=== PATIENT | male | born 1950 | race Caucasian/White ===

== ENCOUNTER 2021-04-26 06:10 | Outpatient (REF) | payer MEDICARE, OTHER, SELFPAY ==
[2021-04-26 12:01] LABS: Hematocrit 42.6 % (42-52); Hemoglobin 14.4 g/dl (14.0-18.0); Mean Corpuscular HGB Conc 33.8 g/dl (31.0-36.0); Mean Corpuscular Hemoglobin 30.2 pg (27.0-33.0); Mean Corpuscular Volume 89.3 fL (80-98); Platelet Count 253 X10*3/uL (160-400); Red Blood Count 4.77 X10*6/uL (4.60-5.80); Red Cell Distribution Width 12.9 % (11.0-16.0); White Blood Count 4.9 X10*3/uL (4.8-10.8)
[2021-04-26 12:03] LABS: Appearance Urine CLEAR; Color Urine YELLOW; Glucose Urine UA NEG (NEG); Leukocyte Esterase Urine NEG (NEG); Nitrite Urine NEG (NEG); Specific Gravity - Urine 1.025 (1.005-1.025); Urine Blood NEG (NEG); Urine Ketones NEG (NEG); Urine Protein NEG (NEG-TRACE)
[2021-04-26 12:30] LABS: Alanine Aminotransferase 18 U/L (0-40); Albumin Level 4.7 g/dL (3.5-5.0); Alkaline Phosphatase 70 U/L (39-117); Anion Gap 13 (12-20); Aspartate Amino Transferase 21 U/L (5-37); Bilirubin Total 0.7 mg/dL (0.0-1.0); Blood Urea Nitrogen 20 mg/dL (9-16); Calcium 9.9 mg/dL (8.4-10.2); Carbon Dioxide 29 mmol/L (22-29); Chloride 104 mmol/L (96-108); Cholesterol 196 mg/dL; Estimated Glomerular Filt Rate > 60; Glucose Fasting 103 mg/dL (60-99); HDL Cholesterol 61 mg/dL; LDL Cholesterol Calculated 113 mg/dl; Potassium 5.6 mmol/L (3.3-5.1); Sodium 140 mmol/L (135-145); Total Protein 7.2 g/dL (6.5-8.0); Triglycerides 110 mg/dL
[2021-04-30 18:17] LABS: Testosterone, Free 33.2 pg/mL (35.0-155.0); Testosterone, Total 255 ng/dL (250-1100)
== END 2021-04-26 06:11 | disposition home or self-care (01) ==
LOC: HO.HMGCLDS 06:10
PROVIDERS: PCP Internal Medicine; Visit Provider Internal Medicine
DX: Z00.00 Encounter for general adult medical examination without abnormal findings (principal); E78.5 Hyperlipidemia, unspecified; K21.9 Gastro-esophageal reflux disease without esophagitis; E29.1 Testicular hypofunction
CPT/HCPCS: 36415; 80053; 80061; 81003; 84402; 84403; 84443; 85027

== ENCOUNTER 2021-05-03 08:50 | Outpatient (REF) | payer MEDICARE, OTHER, SELFPAY ==
[2021-05-03 12:21] LABS: Anion Gap 13 (12-20); Blood Urea Nitrogen 19 mg/dL (9-16); Calcium 9.3 mg/dL (8.4-10.2); Carbon Dioxide 25 mmol/L (22-29); Chloride 104 mmol/L (96-108); Estimated Glomerular Filt Rate > 60; Glucose Random 79 mg/dL (60-115); Potassium 4.1 mmol/L (3.3-5.1); Sodium 138 mmol/L (135-145)
[2021-05-03 12:38] LABS: Prostate Specific Antigen Scr 0.38 ng/mL (<0.05-4.0)
== END 2021-05-03 08:51 | disposition home or self-care (01) ==
LOC: HO.HMGCLDS 08:50
PROVIDERS: PCP Internal Medicine; Visit Provider Internal Medicine
DX: Z12.5 Encounter for screening for malignant neoplasm of prostate (principal); N40.0 Benign prostatic hyperplasia without lower urinary tract symptoms; E87.5 Hyperkalemia
CPT/HCPCS: 36415; 80048; 84153

== ENCOUNTER 2022-08-01 07:50 | Outpatient (REF) | payer MEDICARE, OTHER, SELFPAY ==
[2022-08-01 11:33] LABS: Hematocrit 43.8 % (42.0-52.0); Hemoglobin 14.8 g/dl (14.0-18.0); Mean Corpuscular HGB Conc 33.8 g/dl (31.0-36.0); Mean Corpuscular Hemoglobin 30.5 pg (27.0-33.0); Mean Corpuscular Volume 90.3 fL (80.0-98.0); Mean Platelet Volume 10.3 fL (9.4-12.4); Platelet Count 232 X10*3/uL (160-400); Red Blood Count 4.85 X10*6/uL (4.60-5.80); White Blood Count 5.1 X10*3/uL (4.8-10.8)
[2022-08-01 12:49] LABS: Alanine Aminotransferase 23 U/L (0-40); Alkaline Phosphatase 77 U/L (39-117); Anion Gap 12 (12-20); Aspartate Amino Transferase 27 U/L (5-37); Bilirubin Total 0.7 mg/dL (0.0-1.0); Blood Urea Nitrogen 22 mg/dL (9-16); Carbon Dioxide 28 mmol/L (22-29); Chloride 104 mmol/L (96-108); Cholesterol 205 mg/dL; Estimated Glomerular Filt Rate > 60; Glucose Fasting 96 mg/dL (60-99); HDL Cholesterol 65 mg/dL; LDL Cholesterol Calculated 120 mg/dl; Potassium 4.2 mmol/L (3.3-5.1); Sodium 140 mmol/L (135-145); Total Protein 7.4 g/dL (6.5-8.0); Triglycerides 104 mg/dL
[2022-08-01 12:56] LABS: Prostate Specific Antigen Scr 0.53 ng/mL (<0.05-4.0)
[2022-08-10 18:59] LABS: Testosterone, Free 44.7 pg/mL (30.0-135.0); Testosterone, Total 274 ng/dL (250-1100)
== END 2022-08-01 07:51 | disposition home or self-care (01) ==
LOC: HO.HMGCLDS 07:50
PROVIDERS: PCP Internal Medicine; Visit Provider Internal Medicine
DX: Z00.00 Encounter for general adult medical examination without abnormal findings (principal); Z12.5 Encounter for screening for malignant neoplasm of prostate; E78.5 Hyperlipidemia, unspecified
CPT/HCPCS: 36415; 80053; 80061; 84153; 84402; 84403; 85027

== ENCOUNTER 2023-02-20 08:30 | Day surgery (SDC) | payer MEDICARE, OTHER, SELFPAY ==
[2023-02-20 08:57] VITALS: BMI 26.2
--- NOTE | 2023-02-20 09:03 | P.CONAN_ITS ---
HPI - Anesthesia Eval Consult details Narrative: Colonoscopy [facility] Active Problems Active Problems: All Active Problems (Updated 05/03/21 @ 08:44 by Renee Eller MD) BPH (benign prostatic hyperplasia) (Acute) Hyperkalemia (Acute) Hypogonadism (Acute) Hyperlipidemia (Acute) Annual physical exam (Acute) Normal colonoscopy (Acute) Past Medical History Medical History Actinic keratitis Annual physical exam BPH (benign prostatic hyperplasia) Depression GERD (gastroesophageal reflux disease) Hiatal hernia Hyperkalemia Hyperlipidemia Hypogonadism Inguinal hernia, right Normal colonoscopy Family History Family History Father No problems noted. Mother No problems noted. Family history of problems with anesthesia: No Surgical History Surgical History H/O colonoscopy History of Problems with Anesthesia: No Social History Social History Housing: House Patient Tobacco Use Status: Never used Tobacco e-Cigarette/Vaping Use: Never Used Advance Directives: No Advance Directives Information Provided: Yes Current occupational status: retired [employer] Allergies Allergy/AdvReac Type Severity Reaction Status Date / Time No Known Allergies Allergy Verified 09/07/22 12:39 Active Medications: Current Medications Lactated Ringer's (Lr) 1,000 mls @ 100 mls/hr IVCONT .Q10H [facility] Home Medications Medication Instructions Recorded Confirmed Last Taken Type cholecalciferol (vitamin D3) 25 25 mcg PO DAILY 04/27/20 09/07/22 Unknown History mcg (1,000 unit) capsule zhmfkjzqycnw-lshvwdpy-iwlgpq tablet 1 tab PO DAILY 04/27/20 09/07/22 Unknown History Exam Exam Date and Time: February 20, 2023 0903 Height,Weight and Vital Signs: Height 6 ft 4 in Weight 97.522 kg Airway Mallampati Class: II TM Dist: >3cm Neck ROM: Limited Heart: rrr Lungs: cta Assessment and Plan Assessment Anesthesia Assessment: Anesthesia Plan Discussed and Chart Reviewed Final Anesthetic Review Family History of Problems with Anesthesia: No History of Problems with Anesthesia: No NPO: Yes ASA Class: II Final Preanesthetic Review: No Changes in Pt Med Stat, Meds/Allgs Chart Reviewed, Consent Obtained/Reviewed and Anes Risks/Benef Reviewed Patient Risk: Low Procedure Risk: Low Anesthetic Plan Anesthetic Plan: MAC: and Agree w/ Assess. and Plan Disposition: Standard PACU
[2023-02-20 09:07] VITALS: BP 114/77; PULSE 74; RESP 20; TEMP 36.6; O2SAT 98
[2023-02-20] MEDS: Lactated Ringers 1,000 ML 100 ML IVCONT (09:19)
--- NOTE | 2023-02-20 10:09 | MHC.SHP ---
Pre-Procedural Eval Section A Date of Service: 02/20/23 Section B Chief Complaint: Encounter for screening for malignant neoplasm Details of Present Illness: see H&P Relevant Family History (Specify if Yes): No Relevant Social History: None Present Medications: None Medical History: No relevant PMH History of Previous Operations: No relevant previous surgery Allergies: Allergies Allergy/AdvReac Type Severity Reaction Status Date / Time No Known Allergies Allergy Verified 09/07/22 12:39 Review of Systems Sugical H&P ROS: Negative: Constitution, Cardiovascular, Respiratory, Neurological, Psychiatric, Hem-Onc, Allergic/Immunologic, Gastrointestinal, Genitourinary, Musculoskeletal, Integumentary, Endocrine and Eyes/Ears/Nose/Throat Exam Surgical H&P Exam: Normal: HEENT, Normal: Heart, Normal: Lungs, Normal: Extremities, Normal: Abdomen, Normal: Skin and Normal: Neurological Plan Diagnosis/Plan: Unchanged I have reviewed the history and physical and performed a pertinent physical examination on my patient. No changes have occurred unless specified. Time Spent With Patient Time: Total time managing care of this patient today ____ minutes.
[2023-02-20 10:57] VITALS: BP 98/66; PULSE 65; RESP 18; TEMP 36.1; O2SAT 98
[2023-02-20 11:21] VITALS: BP 102/81; PULSE 54; RESP 18; TEMP 36.2; O2SAT 100
--- NOTE | 2023-02-20 12:10 | OP_ITS ---
DATE OF SERVICE: 02/20/2023 SURGEON: Peyman De Paz MD INDICATIONS: Colon cancer screening. PREOPERATIVE DIAGNOSIS: POSTOPERATIVE DIAGNOSIS: PROCEDURE PERFORMED: Colonoscopy to the terminal ileum. ESTIMATED BLOOD LOSS: COMPLICATIONS: ANESTHESIA: Monitored anesthesia care. ASSISTANTS: SPECIMENS: DESCRIPTION OF PROCEDURE: A history and physical was performed. The risks and benefits of the procedure were explained to the patient. Informed consent was obtained. The patient was placed in the left lateral decubitus position. A digital rectal exam was performed and was found to be normal. The Olympus pediatric video colonoscope was introduced into the rectum and advanced to the cecum. The cecum was identified by transillumination, palpation, and identification of ileocecal valve. Examination was performed. The scope was removed. He tolerated the procedure well and was returned to the recovery area in stable condition. FINDINGS: The terminal ileum was examined and appeared normal. The visualized colonic mucosa was normal. The quality of the prep was good. No polyps were identified. There was mild sigmoid diverticulosis with a few scattered diverticula throughout the remainder of the colon. Retroflexed examination showed small internal hemorrhoids. IMPRESSION: Normal colonoscopy. RECOMMENDATION: 1. Follow up as needed. 2. Repeat colonoscopy is recommended in 10 years for average risk individuals. This is optional based on his age. MD SAMINA Duron/SUMAYA / [phone]
== END 2023-02-20 11:39 | disposition home or self-care (01) ==
PROVIDERS: PCP Internal Medicine; Visit Provider Internal Medicine Gastroenterology
PROC: 0DJD8ZZ Inspection of Lower Intestinal Tract, Via Natural or Artificial Opening Endoscopic (ICD-10-PCS; CPT 45378; principal; 2023-02-20 10:00)
DX: Z12.11 Encounter for screening for malignant neoplasm of colon (principal); K57.30 Diverticulosis of large intestine without perforation or abscess without bleeding; K64.8 Other hemorrhoids; N40.0 Benign prostatic hyperplasia without lower urinary tract symptoms; E29.1 Testicular hypofunction; E78.5 Hyperlipidemia, unspecified; F41.1 Generalized anxiety disorder; Z79.899 Other long term (current) drug therapy
CPT/HCPCS: G0121

== ENCOUNTER 2023-05-07 13:36 | Outpatient (AMB) | payer MEDICARE, OTHER, SELFPAY ==
[2023-05-07 13:54] VITALS: BP 128/78; PULSE 73; O2SAT 97; BMI 25.7
--- NOTE | 2023-05-07 13:54 | A.OFFPC_ITS ---
Vital Signs 05/07/23 13:54 Height 6 ft 4 in Weight 211 lb BMI 25.7 BP 128/78 Blood Pressure Location Lt brachial Position Sitting Pulse 73 Pulse Source Pulse Oximeter Pulse Oximetry (%) 97 Oxygen Delivery Method Room Air Intake Visit Reasons: Discuss Ear, Nose & Throat Referral Intake Note: Pt is here today for a sick visit. Pt states that he lost his voice 3 months ago and it never came back. Allergies No Known Allergies Allergy (Verified 05/07/23 13:57) Medication List - Last Reconciled 05/07/23 by Renee Eller MD cholecalciferol (vitamin D3) 25 mcg PO DAILY duloxetine 60 mg PO DAILY yqojstmyfozq-wnagjrxd-ffzlse 1 tab PO DAILY omeprazole 20 mg PO DAILY simvastatin 20 mg PO BEDTIME testosterone 10 mg/0.5 gram /actuation (Fortesta) 1 pump transdermal QAM trazodone 100 mg PO BEDTIME Tobacco use date assessed: 05/07/23 Fall risk assessment: No Falls in past year Last assessed Fall Risk: 05/07/23 Dental Screening Dental Screen Date: 05/07/23 Did you have a dental visit in the last 12 months?: Yes Did you have a dental problem in the last 6 months where you did not have access to dental care?: No Was dental information given to patient?: Patient has dentist HPI Discuss Ear, Nose & Throat Referral HPI Details Patient presents complaining of 2 months of hoarseness. He reports intermittent GERD symptoms up to 4 times a week and has been taking Tums with some relief. Patient denies sore throat, postnasal drip, cough, fever chills dysphagia, odynophagia hematochezia melena abdominal pain. [facility] Medical History Actinic keratitis Annual physical exam BPH (benign prostatic hyperplasia) Depression GERD (gastroesophageal reflux disease) Hiatal hernia Hyperkalemia Hyperlipidemia Hypogonadism Inguinal hernia, right Normal colonoscopy Surgical History H/O colonoscopy Family History (Updated 05/07/23 @ 14:[address] [facility]) Father No problems noted. Mother No problems noted. Social History Housing: House Patient Tobacco Use Status: Never used Tobacco e-Cigarette/Vaping Use: Never Used Current occupational status: retired Cognitive needs: No Hearing needs: No Vision needs: No Questionnaire Thrive Questionnaire Date Thrive assessed: 05/03/21 AUDIT C Alcohol Use Questionnaire (AUDIT-C) 1. How often do you have a drink containing alcohol?: Monthly or less 2. How many drinks containing alcohol do you have on a typical day when you are drinking?: 1 or 2 3. How often do you have six or more drinks on one occasion?: Never Total Score: 1 Review of Systems Const All systems reviewed & are unremarkable except as noted in HPI and below Reports no additional complaints Eyes Reports no additional complaints ENT Reports no additional complaints Card Reports no additional complaints Resp Reports no additional complaints GI Reports no additional complaints Reports no additional complaints Physical exam (Primary Care) Vital Signs: Last Vital Signs Pulse 73 05/07/23 13:54 BP 128/78 05/07/23 13:54 Pulse Ox 97 05/07/23 13:54 Oxygen Delivery Method Room Air 05/07/23 13:54 BMI result Body Mass Index 25.7 Tobacco/Smoking Status: Tobacco use Status Tobacco use date assessed 05/07/23 05/07/23 13:59 Patient Tobacco Use Status Never used Tobacco 05/07/23 13:59 e-Cigarette/Vaping Use Never Used 05/07/23 13:59 Thrive Assessment: Date of Thrive Assessment Date Thrive assessed 05/03/21 05/07/23 13:59 Const General: no acute distress HENMT Head: Yes normal to inspection Ears: hearing grossly normal bilaterally Face and sinus: Yes normal facial exam Throat: Yes posterior oropharynx normal Eyes General: appearance normal, both eyes and all related structures Neck Neck: Yes no lymphadenopathy and Yes supple Resp Effort & Inspection: normal respiratory effort Auscultation: clear to auscultation bilaterally Cardio Rhythm: regular rhythm Heart sounds: S1 normal heart sound present and S2 normal heart sound present Assessment and Plan Assessment & Plan (1) Hoarseness: Code(s): R49.0 - Dysphonia Plan: Referred to ENT, start omeprazole 20 mg a day and anti GERD diet discussed with the patient. Orders: Referrals Ear/Nose/Throat Referral R49.0 - Dysphonia Medications: New omeprazole 20 mg PO DAILY 90 caps 0RF Coding Level of Care Code Est Pt Level 3 (78545) Diagnoses Hoarseness R49.0
== END 2023-05-07 14:38 | disposition home or self-care (01) ==
PROVIDERS: PCP Internal Medicine; Visit Provider Internal Medicine
DX: R49.0 Dysphonia (principal)
CPT/HCPCS: 99213

== ENCOUNTER 2023-09-06 07:31 | Outpatient (REF) | payer MEDICARE, OTHER, SELFPAY ==
[2023-09-06 11:31] LABS: MANUAL DIFF FLAG NO
[2023-09-06 11:41] LABS: Basophils Percent Auto 0.8 % (0-2); Eosinophils Absolute Auto 0.2 X10*3/uL (0.0-0.4); Eosinophils Percent Auto 3.4 % (0-4); Hematocrit 44.7 % (42.0-52.0); Hemoglobin 15.1 g/dl (14.0-18.0); Imm Gran Abs Auto 0.01 X10*3/uL (0.00-0.03); Imm Gran Pct Auto 0.2 % (0.0-0.4); Lymphocytes Absolute Auto 1.5 X10*3/uL (1.2-4.9); Lymphocytes Percent Auto 32.2 % (20-40); Mean Corpuscular HGB Conc 33.8 g/dl (31.0-36.0); Mean Corpuscular Hemoglobin 30.3 pg (27.0-33.0); Mean Corpuscular Volume 89.8 fL (80.0-98.0); Mean Platelet Volume 10.1 fL (9.4-12.4); Monocytes Absolute Auto 0.4 X10*3/uL (0.1-1.2); Monocytes Percent Auto 7.8 % (2-11); Neutrophils Absolute Auto 2.6 x10*3/uL (2.0-8.3); Neutrophils Percent Auto 55.6 % (45-73); Platelet Count 235 X10*3/uL (160-400); Red Blood Count 4.98 X10*6/uL (4.60-5.80); Red Cell Distribution Width 12.9 % (11.0-16.0); White Blood Count 4.7 X10*3/uL (4.8-10.8)
[2023-09-06 12:00] LABS: Alanine Aminotransferase 20 U/L (0-40); Albumin Level 4.8 g/dL (3.5-5.0); Alkaline Phosphatase 75 U/L (39-117); Anion Gap 13 (12-20); Aspartate Amino Transferase 24 U/L (5-37); Bilirubin Total 0.6 mg/dL (0.0-1.0); Blood Urea Nitrogen 18 mg/dL (9-16); Calcium 10.2 mg/dL (8.4-10.2); Carbon Dioxide 27 mmol/L (22-29); Chloride 104 mmol/L (96-108); Cholesterol 184 mg/dL (<200); Estimated Glomerular Filt Rate > 60; Glucose Fasting 99 mg/dL (60-99); HDL Cholesterol 53 mg/dL (>40); LDL Cholesterol Calculated 110 mg/dL (<100); Potassium 4.2 mmol/L (3.3-5.1); Sodium 140 mmol/L (135-145); Total Protein 7.6 g/dL (6.5-8.0); Triglycerides 108 mg/dL (<150)
[2023-09-06 12:20] LABS: TSH reflex Free T4 1.36 uIU/mL (0.32-4.0); Vitamin D 25-OH Total 50.9 ng/mL (>30)
== END 2023-09-06 07:32 | disposition home or self-care (01) ==
LOC: HO.HMGCLDS 07:31
PROVIDERS: PCP Internal Medicine; Visit Provider Internal Medicine
DX: Z00.00 Encounter for general adult medical examination without abnormal findings (principal); N40.0 Benign prostatic hyperplasia without lower urinary tract symptoms; E78.5 Hyperlipidemia, unspecified; Z12.5 Encounter for screening for malignant neoplasm of prostate
CPT/HCPCS: 36415; 80053; 80061; 82306; 84153; 84443; 85025

== ENCOUNTER 2023-09-13 08:34 | Outpatient (AMB) | payer MEDICARE, OTHER, SELFPAY ==
[2023-09-13 09:04] VITALS: BP 124/78; PULSE 82; O2SAT 97; BMI 26.7
--- NOTE | 2023-09-13 09:04 | AM.OFFVISMDC ---
Intake Vital Signs 09/13/23 09:04 Height 6 ft 4 in Weight 219 lb BMI 26.7 BP 124/78 Blood Pressure Location Lt brachial Position Sitting Pulse 82 Pulse Source Pulse Oximeter Pulse Oximetry (%) 97 Oxygen Delivery Method Room Air Intake Visit Reasons: SWV [id number] Allergies No Known Allergies Allergy (Verified 09/13/23 09:08) Medication List - Last Reconciled 09/13/23 by Renee Eller MD cholecalciferol (vitamin D3) 25 mcg PO DAILY duloxetine 60 mg PO DAILY duloxetine 40 mg PO DAILY kshflzkixasb-ntelagma-uaeemk 1 tab PO DAILY omeprazole 20 mg PO DAILY simvastatin 20 mg PO BEDTIME testosterone 10 mg/0.5 gram /actuation (Fortesta) 1 pump transdermal QAM trazodone 100 mg PO BEDTIME HPI SWV G0439 HPI Details Initiated the conversation about Advanced Directives. Advanced Directives help? patients prepare for current and future decisions about their medical treatment? and place of care. Discussed with patient that it is a process where a patients? current condition and prognosis are reviewed, their wishes for information? regarding their illness are elicited, and likely medical dilemmas are presented? and options discussed. The form can be amended as needed, reviewed yearly and? make changes as needed IPPE/AWV ? year old presents? for her ? Annual? Wellness Visit, initial visit.? Medical / Social History Reviewed? Past Medical History ?Yes? . ? [place]? of Care / Care Team list updated ?Yes . ? Surgical/Hospitalization? History ?Yes . ? Current Medications? (including OTC and supplements) ?Yes . ? Family History ?Yes? . ? Tobacco? Control form ?Yes . ? AUDIT-C (Alcohol use) form? ?Yes . ? Illicit drug use in Social? History ?Yes . ? Current diagnosis of? depression? ?No ? Appropriate PHQ2/PHQ9? completed ?Yes . ? Data entered by ?Medical? Manufacturing Plant Controller and reviewed by provider ? Fall Risk ? Fall? History? Have you had any falls with? injury in the past year? ?No . ? Have you had two or more? falls in the past year? ?No . ? Fall Risk Assessment: ?No? falls in the past year . ? HRA filled out by? the patient, reviewed by Provider and scanned. ? IPPE/AWV ? Balance? [place]? ?Yes . ? Tandem? walk ?Yes . ? Walk and? Turn ?Yes . ? Rise from? sit to stand ?Yes . ?Vision? Corrective? lens ?Yes ? Vision? screen ? Up-to-date, has an appointment [] for vision? screening and glaucoma screening ?Hearing? Whisper? test ?pass .? Initiated the conversation about Advanced Directives. Advanced Directives help? patients prepare for current and future decisions about their medical treatment? and place of care. Discussed with patient that it is a process where a patients? current condition and prognosis are reviewed, their wishes for information? regarding their illness are elicited, and likely medical dilemmas are presented? and options discussed. The form can be amended as needed, reviewed yearly and? make changes as needed Written? Plan?Completed. See Patient? Documents. [facility] Medical History (Updated 09/13/23 @ 09:57 by Renee Eller MD) GERD (gastroesophageal reflux disease) Depression BPH (benign prostatic hyperplasia) Hyperkalemia Annual physical exam Normal colonoscopy Hypogonadism Inguinal hernia, right Hiatal hernia Hyperlipidemia Actinic keratitis Surgical History H/O colonoscopy Family History (Updated 05/07/23 @ 14:00 by Salome Camacho [facility]) Father No problems noted. Mother No problems noted. Social History Housing: House Patient Tobacco Use Status: Never used Tobacco e-Cigarette/Vaping Use: Never Used Current occupational status: retired Cognitive needs: No Hearing needs: No Vision needs: No Questionnaire Medicare Wellness Checkup [age] What gender do you identify with?: male During the past 4 weeks, how much have you been bothered by emotional problems such as feeling anxious, depressed, irritable, sad or downhearted, and blue?: not at all During the past 4 weeks, has your physical & emotional health limited your social activities with family, friends, neighbors, or groups?: not at all During the past 4 weeks, how much bodily pain have you generally had?: no pain During the past 4 weeks, was someone available to help you if you needed & wanted help?: yes, as much as I wanted During the past 4 weeks, what was the hardest physical activity you could do for at least 2 minutes?: very heavy Can you get to places out of walking distance without help? (For eg., can you travel alone on buses, taxis or drive your car?): Yes Can you go shopping for groceries or clothes without someone's help?: Yes Can you prepare your own meals?: Yes Can you do your housework without help?: Yes Because of any health problems, do you need the help of another person with your personal care needs such as eating, bathing, dressing or getting around the house?: No Can you handle your own money without help?: Yes During the past 4 weeks, how would you rate your health in general?: excellent During the past 4 weeks how have things been going for you?: very well; could hardly better Are you having difficulties driving your car?: no Do you always fasten your seat belt when you are in a car?: yes, usually During past 4 weeks, have you been bothered by the following: never: Falling or dizzy when standing up, Trouble eating well?, Teeth or denture problems? and Problems using the telephone?, sometimes: Tiredness or fatigue? and always: Sexual problems? Have you fallen 2 or more times in the past year?: No Are you afraid of falling?: No Are you a smoker?: no During the past 4 weeks, how many drinks of wine, beer, or other alcoholic beverages did you have?: 2-5 drinks per week Do you exercise for about 20 minutes 3 or more times a week?: yes, most of the time Have you been given information to help with the following?: no: Hazards in your house that might hurt you? and no: Keeping track of your medications? How often do you have trouble taking medicines the way you have been told to take them?: I always take medicine as prescribed How confident are you that you can control & manage most of your health problems?: very confident What is your race?: White Mini Mental State Exam (MMSE) Orientation What is the (year) (season) (date) (day) (month)?: year, season, date, day and month Where are we (state) (county) (town or city) (hospital) (floor)?: state, county, town or city, hospital/clinic and floor Registration Name of 3 unrelated objects clearly and slowly, then ask patient to repeat all 3 of them. (1st repeat determines score. Make sure they can repeat all three): object 1, object 2 and object 3 Attention & Calculation (CHOOSE ONE) Ask pt to begin with 100 & count backward by 7. Stop after 5 repeats. If pt cannot ask them to spell the word WORLD backward.: 93 Spell WORLD backwards (DLROW): 5 letters Recall Ask patient to repeat the 3 items from question #3.: object 1, object 2 and object 3 Language Show patient a wristwatch & ask what it is. Repeat for pencil.: watch and pencil Ask the patient to repeat the phrase 'No ifs, ands, or buts' after you.: correct Ask the patient to 'take a piece of paper with their right hand' 'fold paper in half' 'place paper on floor': take paper in right hand, fold paper in half and place paper on floor Print the sentence 'CLOSE YOUR EYES' on a piece. If patient actually closes eyes then score.: followed written direction Give patient a blank piece of paper & ask to write a sentence. Score if it contains a noun & verb.: sentence contains subject and verb Score Score: 30 Activity of Daily Living Bathing - sponge bath, tub bath or shower: receives no assistance (gets in/out by self, if usual bathing means Dressing - getting clothes from closets & drawers, including inner/outer garments & fasteners.: gets clothes & gets completely dressed without help Toileting - going to the 'toilet room' for urine/bowel elimination & cleaning self/arranging clothes: goes to toilet room, cleans self, arranges clothes without help Transfer: moves in & out of bed and chair without help (may use support object) Continence: controls urination/bowel movements completely by self Feeding: feeds self without help Total Score: 0 Information obtained from: patient Using telephone: independent Traveling: independent Shopping: independent Preparing meals: independent Housework: independent Taking medicine: independent Managing money: independent PHQ-9 Over the last 2 weeks, how often have you been bothered by any of the following problems? 1. Little interest or pleasure in doing things: not at all 2. Feeling down, depressed, or hopeless: not at all 3. Trouble falling or staying asleep, or sleeping too much: not at all 4. Feeling tired or having little energy: several days 5. Poor appetite or overeating: not at all 6. Feeling bad about yourself - or that you are a failure or have let yourself or your family down: not at all 7. Trouble concentrating on things, such as reading the newspaper or watching television: not at all 8. Moving or speaking so slowly that other people could have noticed. Or the opposite - being so fidgety or restless that you have been moving around a lot more than usual: not at all 9. Thoughts that you would be better off or of hurting yourself in some way: not at all Total score: 1 Depression Screening Interpretation: Negative Depression Screening Done: Yes Source: Developed by Drs. Eh Christianson, Rehana Alex, Pankaj Mahajan and colleagues, with an educational umair from [employer]. Review of Systems Const All systems reviewed & are unremarkable except as noted in HPI and below Reports no additional complaints Eyes Reports no additional complaints ENT Reports no additional complaints Card Reports no additional complaints Resp Reports no additional complaints Physical Exam Vital Signs: Last Vital Signs Pulse 82 09/13/23 09:04 BP 124/78 09/13/23 09:04 Pulse Ox 97 09/13/23 09:04 Oxygen Delivery Method Room Air 09/13/23 09:04 BMI result Body Mass Index 26.7 Const General: no acute distress HEENT Head: Yes normal to inspection Ears: hearing grossly normal bilaterally Eyes General: appearance normal, both eyes and all related structures Neck Neck: Yes no lymphadenopathy and Yes supple Resp Effort & Inspection: normal respiratory effort Auscultation: clear to auscultation bilaterally Cardio Rhythm: regular rhythm Heart sounds: S1 normal heart sound present and S2 normal heart sound present GI Inspection: Yes normal to inspection Palpation (GI): Soft to palpation Percussion: Yes normal to percussion Auscultation: normal bowel sounds Extrem General: Yes no clubbing, cyanosis or edema Assessment & Plan Assessment & Plan (1) Normal colonoscopy: Comment: 02/2023, NEGATIVE Plan: PATIENT NEGATIVE COLONOSCOPY IN FEBRUARY (2) Hyperlipidemia: Code(s): E78.5 - Hyperlipidemia, unspecified Plan: Continue statin (3) Annual physical exam: Code(s): Z00.00 - Encounter for general adult medical examination without abnormal findings Plan: Well-balanced diet regular physical activity discussed with the patient. He will decrease duloxetine from 60 to 40 mg in October and will follow-up as needed after 3 months to discuss further taper down if interested (4) Hypogonadism: Comment: continue testosterone replacement Plan: Continue testosterone (5) Depression: Comment: Controlled on duloxetine and trazodone, patient will attempt lowering dose to 40 mg in October 2023 Code(s): F32.9 - Major depressive disorder, single episode, unspecified Plan: Taper down duloxetine to 40 mg Orders: Orders Complete Blood Count Auto Diff 365 Days E78.5 - Hyperlipidemia, unspecified, F32.9 - Major depressive disorder, single episode, unspecified, R49.0 - Dysphonia, Z00.00 - Encounter for general adult medical examination without abnormal findings PSA,Total (Free>4and<10) 365 Days E78.5 - Hyperlipidemia, unspecified, F32.9 - Major depressive disorder, single episode, unspecified, R49.0 - Dysphonia, Z00.00 - Encounter for general adult medical examination without abnormal findings UA w Microscopic 365 Days E78.5 - Hyperlipidemia, unspecified, F32.9 - Major depressive disorder, single episode, unspecified, R49.0 - Dysphonia, Z00.00 - Encounter for general adult medical examination without abnormal findings Comprehensive Eucha. Panel Fast 365 Days E78.5 - Hyperlipidemia, unspecified, F32.9 - Major depressive disorder, single episode, unspecified, R49.0 - Dysphonia, Z00.00 - Encounter for general adult medical examination without abnormal findings Lipid Panel 365 Days E78.5 - Hyperlipidemia, unspecified, F32.9 - Major depressive disorder, single episode, unspecified, R49.0 - Dysphonia, Z00.00 - Encounter for general adult medical examination without abnormal findings Testosterone, Free/Total 365 Days E78.5 - Hyperlipidemia, unspecified, F32.9 - Major depressive disorder, single episode, unspecified, R49.0 - Dysphonia, Z00.00 - Encounter for general adult medical examination without abnormal findings Medications: New duloxetine 40 mg PO DAILY 90 caps 1RF Quality Reporting (2019) Depression/Bipolar (159/160/161/177) PHQ-9: Total score: 1 Coding Level of Care Code Medicare Subsequent (G0439) Diagnoses Normal colonoscopy Hyperlipidemia E78.5 Annual physical exam Z00.00 Hypogonadism Depression F32.9 CPT Codes Advance Care Planning - Time spent: 1-15 minutes, not on file ([id number]) Advance Care Planning Advance Care Planning discussion: Exists, not on file Forms completed: Health Care Proxy Time spent: 1-15 minutes, not on file
== END 2023-09-13 09:57 | disposition home or self-care (01) ==
PROVIDERS: Visit Provider Internal Medicine
DX: Z00.00 Encounter for general adult medical examination without abnormal findings (principal); E78.5 Hyperlipidemia, unspecified; F32.9 Major depressive disorder, single episode, unspecified
CPT/HCPCS: 1124F; G0439

== ENCOUNTER 2024-09-18 07:06 | Outpatient (REF) | payer MEDICARE, OTHER, SELFPAY ==
--- OUTSIDE RECORDS SUMMARY | 2024-09-18 07:09 | XMS_ITS | Referral Summary ---
Author Organization [facility] Address [address] [place] [address] Care Team Providers Care Residential Leasing Agent Name Role Phone Unknown, Doctor Primary Care Provider Unavailabl e Allergies No known active allergies Medications aspirin 81 mg EC tablet Take 81 mg by mouth daily. 5 Active simvastatin (ZOCOR) 5 mg tablet Take 5 mg by mouth nightly. Active omeprazole OTC (PriLOSEC OTC) 20 mg EC tablet Take 20 mg by mouth once a day. Active traZODone (DESYREL) 50 mg tablet Take 50 mg by mouth nightly. Active DULoxetine DR (CYMBALTA) 20 mg capsule Take 20 mg by mouth once a day. Active testosterone (Fortesta) 10 mg/0.5 gram /actuation gel in metered-dose pump Place on the skin. Active omega 9-ziv-wgn-fish oil (Fish OiL) 1,000 mg (120 mg-180 mg) capsule Take 1,000 mg by mouth once a day. Active multivitamin-mi nerals-folic acid-Co Q10 (AquADEKs) 100-350-5 mcg-mcg-mg tablet,chewable Chew and swallow 1 tablet by mouth 2 times a day. Active Vitamin D3 25 mcg (1,000 unit) capsule Take 1 capsule by mouth once a day. Active fluticasone propionate (FLONASE) 50 mcg/actuation nasal sprayIndication s:Post-nasal drainage,Hoarse ness Administer 2 sprays into each nostril once a day. 16 g 11 3 Active Active Problems Problem Noted Date Diagnosed Date Major depression, recurrent 10/07/2013 Inguinal hernia 07/14/2013 Hypogonadism male 02/25/2013 Esophageal reflux 02/25/2013 Anxiety disorder 02/25/2013 Hypercholesterolemia 02/25/2013 Immunizations Immunization Administration Dates Next Due Influenza, Trivalent, MDV, Injectable 05/13/2014 ,05/20/2013 Pneumococcal Polysaccharide Vaccine, 23 Valent 0 08/27/2014 Tetanus Toxoid, Reduced Diph theria Toxoid, and Acellular Pertussis Vaccine, Adsorbed 12/01/2008 Social History Tobacco Use Types Packs/Day Years Used Date Smoking Tobacco: Never Comments:: Sex and Gender Information Value Date Recorded Sex Assigned at Not on file Legal Sex Male 12:01 AM EDT Gender Identity Not on file Sexual Orientation Not on file Last Filed Vital Signs Vital Sign Reading Time Taken Comments Blood Pressure 149/78 05/24/2023 10:05 AM EDT Pulse 65 05/24/2023 10:05 AM EDT Temperature 36.4 ??C (97.6 ??F) 08/27/2014 1:43 PM ES T Respiratory Rate - - Oxygen Saturation 98% 05/24/2023 10:05 AM EDT Inhaled Oxygen Concentration - - Weight 93 kg (205 lb) 05/24/2023 10:05 AM EDT Height 189 cm (6' 2.41 ) 05/24/2023 10:05 AM EDT Body Mass Index 26.03 05/24/2023 10:05 AM EDT Plan of Treatment Not on file Procedures * Due to [place] [employer] law, this organization might not be sharing negative HIV tests. Procedure Name Priority Date/Time Associated Diagnosis Comments COLONOSCOPY Routine 04/08/2013 10:14 AM EDT OCCULT BLOOD, FECAL (FIT), OUTSIDE LAB Routine 12/17/2008 12:00 AM EDT from Last 3 Months or Most Recently Relevant to Health Maintenance Results * Due to [place] [employer] law, this organization might not be sharing negative HIV tests. * COLONOSCOPY (04/08/2013 10:14 AM EDT) Colonoscopy diverticulosis DR. Baldev [facility] 04/08/2013 10:1 4 AM EDT us Peyman De Paz [facility] Final Result [facility] * Occult Blood, Fecal (FIT), Outside Lab (12/17/2008 12:00 AM EDT) Occult Blood, Stool #[address] [facility] 12/17/2008 us Historical Conversion Provider LAB BODY FLUIDS A ND STOOLS ORDERABLES Final Result [facility] from Last 3 Months or Most Recently Relevant to Health Maintenance Insurance [facility] MEDIC[facility] Care Teams Residential Leasing Agent Relationship Specialty Start Date End Date Unknown, Doctor Unknown Unknown, STEVEN PCP - General 05/24/23
--- OUTSIDE RECORDS SUMMARY | 2024-09-18 07:09 | XMS_ITS | Clinical Summary ---
Author Organization [facility] Address [address] [place] [address] Care Team Providers Care Casting Sorter Name Role Phone Unknown, Doctor Primary Care [...] pump Place on the skin. Active omega 3-uor-bsn-fish oil (Fish OiL) 1,000 mg (120 mg-180 [...] Toxoid, and Acellular Pertussis Vaccine, Adsorbed 12/01/2008 Family History Medical History Relation Name Comments Other Father Paternal histor y of Diabetes Mellitus Other Other Family history of Diabetes Mellitus Relation Name Status Comments Father Other Social History Tobacco Use Types Packs/Day Years [...] 05/24/2023 10:05 AM EDT Plan of Treatment Health Maintenance Due Date Last Done Comments Cologuard 1950 Sigmoidoscopy 1950 FOBT / Fit Test 12/17/2009 12/17/2008 Colon Cancer Screening 04/08/2023 Colonoscopy 04/08/2023 04/08/2013 COVID-19 Vaccine ( season) 2024 05/09/2023, 05/22/2022, 11/18/2021, Additional history exists Influenza Vaccine (#1) 2024 , 04/17/2022, 04/20/2021, Additional history exists Alcohol/Substance Use Screening 07/23/2024 Depression Evaluation 07/23/2024 Fall Risk Screening 07/23/2024 Health Care Proxy Review 07/23/2024 Social Drivers of Health Annual Screening 07/23/2024 RSV Vaccine (60+ years old and patients) (1 - 1-dose 75+ series) 2026 DTaP,Tdap,and Td Vaccines (3 - Td or Tdap) 10/07/2032 10/07/2022, 12/01/2008 Pneumococcal Vaccine: 50+ Years Completed 01/17/2017, 01/17/2017, 08/27/2014, Additional history exists Zoster Vaccines Completed 10/07/2022, 05/24, 08/02/2016 Hepatitis B Vaccines Aged Out No long er eligible based on patient's age to complete this topic Procedures * Due to [place] [employer] law, this organization might not be sharing negative HIV tests. Procedure Name Priority Date/Time Associated Diagnosis Comments COLONOSCOPY Routine 04/08/2013 10:14 AM EDT OCCULT BLOOD, FECAL (FIT), OUTSIDE LAB Routine 12/17/2008 12:00 AM EDT from Last 3 Months or Most Recently Relevant to Health Maintenance Results * Due to [place] state law, this organization might not be sharing negative HIV tests. * COLONOSCOPY (04/08/2013 10:14 AM EDT) Colonoscopy diverticulosis DR. Baldev [facility] 04/08/2013 10:1 4 AM EDT Peyman De Paz [facility] Final Result [facility] * Occult Blood, Fecal (FIT), Outside Lab (12/17/2008 12:00 AM EDT) Occult Blood, Stool #1 NEGATIVE [facility] 12/17/2008 Historical Conversion Provider LAB BODY FLUIDS A ND STOOLS ORDERABLES Final Result [facility] from Last 3 Months or Most Recently Relevant to Health Maintenance Insurance [facility] MEDIC[facility] Care Teams Casting Sorter Relationship Specialty Start Date End Date Unknown, Doctor Unknown Unknown, STEVEN PCP - General 05/24/23
--- OUTSIDE RECORDS SUMMARY | 2024-09-18 07:09 | XMS_ITS | Patient Health Record ---
Author Organization [facility] Address [address] [place] [address] Care Team Providers Care Cook Frozen Dessert Name Role Phone Renee Eller MD Primary Care Provider Peyman Renner Jr Unavailable [phone] ALLERGIES No Known Allergies REASON FOR REFERRAL No Information MEDICATIONS Medication SIG (Take, Route, Frequency, Duration) Notes Start Date End Date Status Fortesta 10 MG/ACT (2%) 1 pump to skin i n the morning to the thighs Transdermal Once a day Active DULoxetine HCl 60 MG 1 capsule Orally On ce a day for 30 day(s) Active Simvastatin 20 MG 1 tablet in the even ing Orally Once a day for 30 day(s) Active MiraLax (colon prep) 17 GM/SCOOP mixed with Gatorade or Crystal Light Orally begin at 5:00 p.m. the day before the procedure for 1 day 01/15/2023 Active traZODone HCl 100 MG 1 tablet at bedtime Orally Once a day for 30 day(s) Active Fish Oil [place]-3 1000 MG 1 capsule Orall y Once a day for 30 day(s) Active Centrum Adult - as directed Orally Active Vitamin D3 2400 UNIT/ML as directed Active IMMUNIZATIONS Vaccine Route Administration Date Status Comme nts Influenza Unknown 05/09/2022 Administered SOCIAL HISTORY Tobacco Use: Social History Observation Description Date Details (start date - stop date) Never Smoker NA - NA Sex Assigned At : Social History Observation Description Sex Assigned At Unknown Tobacco Use/Smoking Question Answer Notes Patient is a nonsmoker Alcohol Screen Question Answer Notes Did you have a drink contain ing alcohol in the past year? Yes How often did you have a dri nk containing alcohol in the past year? 2 to 4 times a month (2 points) How many drinks did you have on a typical day when you were drinking in the past year? 1 or 2 drinks (0 point) How often did you have 6 or more drinks on one occasion in the past year? Never (0 point) Points 2 Interpretation Negative PROBLEMS Problem Type ICD Code Onset Dates Problem Status W/U Status Risk SNOMED Code Notes Problem Colon cancer screening (Z12.11) Active confirmed 913474801 Problem Long-term current use of high risk medication other than anticoagulant (Z79.899) Active confirmed 025568308 PLAN OF TREATMENT Future Test Test Name Order Date COLONOSCOPY 01/15/2023 Insurance Providers Payer Name Payer Address Payer Phone Subscriber Number Group Number Insured Name Patient Relationship to Insured Coverage Start Date Coverage End Date MEDICARE OF [place] [address] [place] [address] [id number] ZACK ROSEN Self - patient is the insured [facility] INDEMNITY [address] [place] [address] [id number] ZACK ROSEN Self - patient is the insured MEDICAL (GENERAL) HISTORY Medical History History ICD Code Hyperlipidemia Low testosterone Insomnia Anxiety BPH Surgical History Surgery Date(Month/Year)
[2024-09-18 10:05] LABS: MANUAL DIFF FLAG NO
[2024-09-18 10:19] LABS: Basophils Percent Auto 0.7 % (0-2); Eosinophils Absolute Auto 0.1 X10*3/uL (0.0-0.4); Eosinophils Percent Auto 2.3 % (0-4); Hemoglobin 15.1 g/dl (14.0-18.0); Imm Gran Abs Auto 0.01 X10*3/uL (0.00-0.03); Imm Gran Pct Auto 0.2 % (0.0-0.4); Lymphocytes Absolute Auto 1.3 X10*3/uL (1.2-4.9); Lymphocytes Percent Auto 31.3 % (20-40); Mean Corpuscular HGB Conc 34.3 g/dl (31.0-36.0); Mean Corpuscular Hemoglobin 30.2 pg (27.0-33.0); Mean Platelet Volume 9.9 fL (9.4-12.4); Monocytes Absolute Auto 0.4 X10*3/uL (0.1-1.2); Monocytes Percent Auto 9.6 % (2-11); Neutrophils Absolute Auto 2.4 x10*3/uL (2.0-8.3); Neutrophils Percent Auto 55.9 % (45-73); Platelet Count 249 X10*3/uL (160-400); Red Cell Distribution Width 12.9 % (11.0-16.0); White Blood Count 4.3 X10*3/uL (4.8-10.8)
[2024-09-18 10:23] LABS: Appearance Urine Clear; Color Urine Dark Yellow; Glucose Urine UA Negative (Negative); Leukocyte Esterase Urine Negative (Negative); Nitrite Urine Negative (Negative); Urine Blood Negative (Negative); Urine Ketones Trace mg/dL (Negative); Urine Protein Trace mg/dL (Neg-Trace)
[2024-09-18 10:28] LABS: Bacteria Urine None Seen (None Seen); Hyaline Casts Urine 0-2 /LPF (0-2); RBC Urine 0-2 /HPF (0-2); Squamous Epithelial Cell Urine 0-2 /HPF (0-2); WBC Urine 0-5 /HPF (0-5)
[2024-09-18 10:48] LABS: PSA,Total (Free>4and<10) 0.39 ng/mL (0.00-4.00)
[2024-09-18 10:54] LABS: Albumin Level 4.7 g/dL (3.5-5.0); Alkaline Phosphatase 78 U/L (39-117); Anion Gap 12 (12-20); Aspartate Amino Transferase 30 U/L (5-37); Bilirubin Total 0.5 mg/dL (0.0-1.0); Blood Urea Nitrogen 13 mg/dL (9-16); Calcium 9.7 mg/dL (8.4-10.2); Carbon Dioxide 26 mmol/L (22-29); Chloride 106 mmol/L (96-108); Cholesterol 185 mg/dL (<200); Estimated Glomerular Filt Rate > 60; Glucose Fasting 106 mg/dL (60-99); HDL Cholesterol 60 mg/dL (>40); LDL Cholesterol Calculated 98 mg/dL (<100); Potassium 4.3 mmol/L (3.3-5.1); Sodium 140 mmol/L (135-145); Total Protein 7.8 g/dL (6.5-8.0); Triglycerides 138 mg/dL (<150)
[2024-09-18 11:14] LABS: Alanine Aminotransferase 30 U/L (0-40)
[2024-09-25 13:58] LABS: Testosterone, Free 33.1 pg/mL (30.0-135.0); Testosterone, Total 278 ng/dL (250-1100)
== END 2024-09-18 07:07 | disposition home or self-care (01) ==
LOC: HO.HMGCLDS 07:06
PROVIDERS: PCP Internal Medicine; Visit Provider Internal Medicine
DX: E78.5 Hyperlipidemia, unspecified (principal); Z00.00 Encounter for general adult medical examination without abnormal findings; R49.0 Dysphonia; F32.9 Major depressive disorder, single episode, unspecified; Z12.5 Encounter for screening for malignant neoplasm of prostate
CPT/HCPCS: 36415; 80053; 80061; 81001; 84153; 84402; 84403; 85025

== ENCOUNTER 2024-09-25 08:43 | Outpatient (AMB) | payer MEDICARE, OTHER, SELFPAY ==
--- NOTE | 2024-09-25 09:06 | A.OFFVIS_ITS ---
Intake Vital Signs 09/25/24 09:28 Height 6 ft 4 in Weight 218 lb BMI 26.5 BP 114/70 Blood Pressure Location Rt brachial Position Sitting Respiration 18 Pulse 86 Pulse Source Pulse Oximeter Temp 98.5 F Temp Source Oral Pulse Oximetry (%) 97 Oxygen Delivery Method Room Air Intake Visit Reasons: SWV G0439 Allergies No Known Allergies Allergy (Verified 09/25/24 09:28) Medication List - Last Reconciled 09/25/24 by Renee Eller MD cholecalciferol (vitamin D3) 25 mcg PO DAILY duloxetine 60 mg PO DAILY spmemlrvlxeu-oqmwfica-uukgbs 1 tab PO DAILY omeprazole 20 mg PO DAILY simvastatin 20 mg PO BEDTIME testosterone 10 mg/0.5 gram /actuation 1 pump transdermal QAM trazodone 100 mg PO BEDTIME HPI SWV G0439 HPI Details Initiated the conversation about Advanced Directives. Advanced Directives help? patients prepare for current and future decisions about their medical treatment? and place of care. Discussed with patient that it is a process where a patients? current condition and prognosis are reviewed, their wishes for information? regarding their illness are elicited, and likely medical dilemmas are presented? and options discussed. The form can be amended as needed, reviewed yearly and? make changes as needed IPPE/AWV ? year old presents? for her ? Annual? Wellness Visit, initial visit.? Medical / Social History Reviewed? Past Medical History ?Yes? . ? [place]? of Care / Care Team list updated ?Yes . ? Surgical/Hospitalization? History ?Yes . ? Current Medications? (including OTC and supplements) ?Yes . ? Family History ?Yes? . ? Tobacco? Control form ?Yes . ? AUDIT-C (Alcohol use) form? ?Yes . ? Illicit drug use in Social? History ?Yes . ? Current diagnosis of? depression? ?No ? Appropriate PHQ2/PHQ9? completed ?Yes . ? Data entered by ?Medical? Powder Truck Driver and reviewed by provider ? Fall Risk ? Fall? History? Have you had any falls with? injury in the past year? ?No . ? Have you had two or more? falls in the past year? ?No . ? Fall Risk Assessment: ?No? falls in the past year . ? HRA filled out by? the patient, reviewed by Provider and scanned. ? IPPE/AWV ? Balance? Romberg? ?Yes . ? Tandem? walk ?Yes . ? Walk and? Turn ?Yes . ? Rise from? sit to stand ?Yes . ?Vision? Corrective? lens ?Yes ? Vision? screen ? Up-to-date, has an appointment [] for vision? screening and glaucoma screening ?Hearing? Whisper? test ?pass .? Initiated the conversation about Advanced Directives. Advanced Directives help? patients prepare for current and future decisions about their medical treatment? and place of care. Discussed with patient that it is a process where a patients? current condition and prognosis are reviewed, their wishes for information? regarding their illness are elicited, and likely medical dilemmas are presented? and options discussed. The form can be amended as needed, reviewed yearly and? make changes as needed Written? Plan?Completed. See Patient? Documents. [facility] Medical History (Updated 09/25/24 @ 15:21 by Renee Eller MD) GERD (gastroesophageal reflux disease) Depression BPH (benign prostatic hyperplasia) Hyperkalemia Annual physical exam Normal colonoscopy Hypogonadism Inguinal hernia, right Hiatal hernia Hyperlipidemia Actinic keratitis Surgical History (Updated 09/25/24 @ 10:11 by Renee Eller MD) H/O colonoscopy Family History Father No problems noted. Mother No problems noted. Social History Housing: House Patient Tobacco Use Status: Never used Tobacco e-Cigarette/Vaping Use: Never Used Current occupational status: retired Cognitive needs: No Hearing needs: No Vision needs: No Questionnaire Medicare Wellness Checkup [age] What gender do you identify with?: male During the past 4 weeks, how much have you been bothered by emotional problems such as feeling anxious, depressed, irritable, sad or downhearted, and blue?: not at all During the past 4 weeks, has your physical & emotional health limited your social activities with family, friends, neighbors, or groups?: not at all During the past 4 weeks, how much bodily pain have you generally had?: no pain During the past 4 weeks, was someone available to help you if you needed & wanted help?: yes, as much as I wanted During the past 4 weeks, what was the hardest physical activity you could do for at least 2 minutes?: heavy Can you get to places out of walking distance without help? (For eg., can you travel alone on buses, taxis or drive your car?): Yes Can you go shopping for groceries or clothes without someone's help?: Yes Can you prepare your own meals?: Yes Can you do your housework without help?: Yes Because of any health problems, do you need the help of another person with your personal care needs such as eating, bathing, dressing or getting around the house?: No Can you handle your own money without help?: Yes During the past 4 weeks, how would you rate your health in general?: very good During the past 4 weeks how have things been going for you?: very well; could hardly better Are you having difficulties driving your car?: no Do you always fasten your seat belt when you are in a car?: yes, usually During past 4 weeks, have you been bothered by the following: never: Falling or dizzy when standing up, Sexual problems?, Trouble eating well?, Teeth or denture problems?, Problems using the telephone? and Tiredness or fatigue? Have you fallen 2 or more times in the past year?: No Are you afraid of falling?: No Are you a smoker?: no During the past 4 weeks, how many drinks of wine, beer, or other alcoholic beverages did you have?: 2-5 drinks per week Do you exercise for about 20 minutes 3 or more times a week?: yes, most of the time Have you been given information to help with the following?: yes: Hazards in your house that might hurt you? and yes: Keeping track of your medications? How often do you have trouble taking medicines the way you have been told to take them?: I always take medicine as prescribed How confident are you that you can control & manage most of your health problems?: very confident What is your race?: White Mini Mental State Exam (MMSE) Orientation What is the (year) (season) (date) (day) (month)?: year, season, date, day and month Where are we (state) (county) (town or city) (hospital) (floor)?: state, county, town or city, hospital/clinic and floor Registration Name of 3 unrelated objects clearly and slowly, then ask patient to repeat all 3 of them. (1st repeat determines score. Make sure they can repeat all three): object 1, object 2 and object 3 Attention & Calculation (CHOOSE ONE) Spell WORLD backwards (DLROW): 5 letters Recall Ask patient to repeat the 3 items from question #3.: object 1, object 2 and object 3 Language Show patient a wristwatch & ask what it is. Repeat for pencil.: watch and pencil Ask the patient to repeat the phrase 'No ifs, ands, or buts' after you.: correct Ask the patient to 'take a piece of paper with their right hand' 'fold paper in half' 'place paper on floor': take paper in right hand, fold paper in half and place paper on floor Print the sentence 'CLOSE YOUR EYES' on a piece. If patient actually closes eyes then score.: followed written direction Give patient a blank piece of paper & ask to write a sentence. Score if it contains a noun & verb.: sentence contains subject and verb Score Score: 29 Activity of Daily Living Bathing - sponge bath, tub bath or shower: receives no assistance (gets in/out by self, if usual bathing means Dressing - getting clothes from closets & drawers, including inner/outer garments & fasteners.: gets clothes & gets completely dressed without help Toileting - going to the 'toilet room' for urine/bowel elimination & cleaning self/arranging clothes: goes to toilet room, cleans self, arranges clothes without help Transfer: moves in & out of bed and chair without help (may use support object) Continence: controls urination/bowel movements completely by self Feeding: feeds self without help Total Score: 0 Information obtained from: patient Using telephone: independent Traveling: independent Shopping: independent Preparing meals: independent Housework: independent Taking medicine: independent Managing money: independent PHQ-9 Over the last 2 weeks, how often have you been bothered by any of the following problems? 1. Little interest or pleasure in doing things: not at all 2. Feeling down, depressed, or hopeless: not at all 3. Trouble falling or staying asleep, or sleeping too much: not at all 4. Feeling tired or having little energy: several days 5. Poor appetite or overeating: not at all 6. Feeling bad about yourself - or that you are a failure or have let yourself or your family down: not at all 7. Trouble concentrating on things, such as reading the newspaper or watching television: not at all 8. Moving or speaking so slowly that other people could have noticed. Or the opposite - being so fidgety or restless that you have been moving around a lot more than usual: not at all 9. Thoughts that you would be better off or of hurting yourself in some way: not at all Total score: 1 Depression Screening Interpretation: Negative Depression Screening Done: Yes 25259 - PHQ-9 Billing: Yes Source: Developed by Drs. Eh Christianson, Rehana Alex, Pankaj Mahajan and colleagues, with an educational umair from [employer]. Review of Systems Const All systems reviewed & are unremarkable except as noted in HPI and below Eyes Reports no additional complaints ENT Reports no additional complaints Card Reports no additional complaints Resp Reports no additional complaints GI Reports no additional complaints Reports no additional complaints Musc Reports no additional complaints Physical Exam Vital Signs: Last Vital Signs Temp 98.5 F 09/25/24 09:28 Pulse 86 09/25/24 09:28 Resp 18 09/25/24 09:28 BP 114/70 09/25/24 09:28 Pulse Ox 97 09/25/24 09:28 Oxygen Delivery Method Room Air 09/25/24 09:28 BMI result Body Mass Index 26.5 Const General: healthy appearing HEENT Head: Yes normal to inspection Eyes General: appearance normal, both eyes and all related structures Neck Neck: Yes no lymphadenopathy and Yes supple Resp Effort & Inspection: normal respiratory effort Auscultation: clear to auscultation bilaterally Cardio Rhythm: regular rhythm Heart sounds: S1 normal heart sound present and S2 normal heart sound present GI Inspection: Yes normal to inspection Palpation (GI): Soft to palpation Percussion: Yes normal to percussion Auscultation: normal bowel sounds Extrem General: Yes no clubbing, cyanosis or edema Assessment & Plan Assessment & Plan (1) Shoulder pain, right: Comment: Shoulder x-ray with mild osteoarthritis by Orthopedic Code(s): M25.511 - Pain in right shoulder Plan: For chronic right shoulder pain patient will be referred to physical therapy (2) Depression: Comment: Controlled on duloxetine and trazodone, patient will attempt lowering dose to 40 mg in October 2023 Code(s): F32.9 - Major depressive disorder, single episode, unspecified Plan: Continue current medications (3) Hyperlipidemia: Code(s): E78.5 - Hyperlipidemia, unspecified Plan: Continue statin (4) Annual physical exam: Code(s): Z00.00 - Encounter for general adult medical examination without abnormal findings Plan: Well-balanced diet regular physical activity discussed with the patient Orders: Orders PT Evaluation and Treatment Today M25.511 - Pain in right shoulder Medications: Refilled omeprazole 20 mg PO DAILY 90 caps 3RF simvastatin 20 mg PO BEDTIME 90 tabs 3RF trazodone 100 mg PO BEDTIME 90 tabs 3RF duloxetine 60 mg PO DAILY 90 caps 3RF Quality Reporting (2019) Depression/Bipolar (159/160/161/177) PHQ-9: Total score: 1 Coding Level of Care Code Medicare Subsequent (G0439) Diagnoses Shoulder pain, right M25.511 Depression F32.9 Hyperlipidemia E78.5 Annual physical exam Z00.00 CPT Codes Advance Care Planning - Advance Care Planning discussion: On file, no changes ([id number]) Advance Care Planning - Time spent: 1-15 minutes, on File ([id number]) Additional Codes PHQ-9 - 80910 - PHQ-9 Billing: Yes ([id number]) Advance Care Planning Advance Care Planning discussion: On file, no changes Forms completed: Health Care Proxy Time spent: 1-15 minutes, on File Did not discuss due to Cultural/Spiritual beliefs: Yes
--- OUTSIDE RECORDS SUMMARY | 2024-09-25 09:21 | XMS_ITS | Clinical Summary ---
Author Organization [facility] Address [address] [place] [address] Care Team Providers Care Floral Designer Salesperson Name Role Phone Unknown, Doctor Primary Care [...] pump Place on the skin. Active omega 9-bqo-nal-fish oil (Fish OiL) 1,000 mg (120 mg-180 [...] complete this topic Procedures * Due to [place] [employer] law, this organization might not be sharing negative HIV tests. Procedure Name Priority Date/Time Associated Diagnosis Comments COLONOSCOPY Routine 04/08/2013 10:14 AM EDT OCCULT BLOOD, FECAL (FIT), OUTSIDE LAB Routine 12/17/2008 12:00 AM EDT from Last 3 Months or Most Recently Relevant to Health Maintenance Results * Due to [place] state law, this organization might not be sharing negative HIV tests. * COLONOSCOPY (04/08/2013 10:14 AM EDT) Colonoscopy diverticulosis DR. Baldev [facility] 04/08/2013 10:1 4 AM EDT Peyman De Paz [facility] Final Result [facility] * Occult Blood, Fecal (FIT), Outside Lab (12/17/2008 12:00 AM EDT) Occult Blood, Stool #1 NEGATIVE [facility] 12/17/2008 Historical Conversion Provider LAB BODY FLUIDS A ND STOOLS ORDERABLES Final Result [facility] from Last 3 Months or Most Recently Relevant to Health Maintenance Insurance [facility] MEDICARE Care Teams Floral Designer Salesperson Relationship Specialty Start Date End Date Unknown, Doctor Unknown Unknown, STEVEN PCP - General 05/24/23
--- OUTSIDE RECORDS SUMMARY | 2024-09-25 09:21 | XMS_ITS | Patient Health Record ---
Author Organization [facility] Address [address] [place] [address] Care Team Providers Care Party Plan Sales Unit Advisor Name Role Phone Renee Eller MD Primary Care Provider Peyman Renner Jr Unavailable [phone] Allergies No Known Allergies Reason For Referral No Information Medications Medication SIG (Take, Route, Frequency, Duration) Notes [...] day for 30 day(s) Active Fish Oil [place]-3 1000 MG 1 capsule Orall y Once a day for 30 day(s) Active Centrum Adult - as directed Orally Active Vitamin D3 2400 UNIT/ML as directed Active Immunizations Vaccine Route Administration Date Status Comme nts Influenza Unknown 05/09/2022 Administered Social History Tobacco Use: Social History Observation Description Date Details (start date - stop date) Never Smoker NA - NA Tobacco Use/Smoking Question Answer Notes Patient is [...] Never (0 point) Points 2 Interpretation Negative Problems Problem Type SNOMED Code ICD Code Onset Dates Problem Status W/U Status Risk Notes Problem 706882085 Colon cancer screening (Z12.11) Active confirmed Problem 081992081 Long-term curren t use of high risk medication other than anticoagulant (Z79.899) Active confirmed Plan Of Treatment Future Test Test Name Order Date COLONOSCOPY 01/15/2023 Insurance Providers Payer Name Payer Address Payer Phone Subscriber Number Group Number Insured Name Patient Relationship to Insured Coverage Start Date Coverage End Date MEDICARE OF [place] [address] [place] [address] [phone] [id number] ZACK ROSEN Self - patient is the insured [facility] INDE[facility] [address] [place] [address] [id number] ZACK ROSEN Self - patient is the insured Medical (General) History Medical History History ICD Code Hyperlipidemia Low testosterone Insomnia Anxiety BPH Surgical History Surgery Date(Month/Year)
--- OUTSIDE RECORDS SUMMARY | 2024-09-25 09:21 | XMS_ITS | Referral Summary ---
Author Organization [facility] Address [address] [place] [address] Care Team Providers Care Superintendent Greens Name Role Phone Unknown, Doctor Primary Care [...] pump Place on the skin. Active omega 0-sqp-luo-fish oil (Fish OiL) 1,000 mg (120 mg-180 [...] Not on file Procedures * Due to [place] Dtime law, this organization might not be sharing negative HIV tests. Procedure Name Priority Date/Time Associated Diagnosis Comments COLONOSCOPY Routine 04/08/2013 10:14 AM EDT OCCULT BLOOD, FECAL (FIT), OUTSIDE LAB Routine 12/17/2008 12:00 AM EDT from Last 3 Months or Most Recently Relevant to Health Maintenance Results * Due to [place] Dtime law, this organization might not be sharing negative HIV tests. * COLONOSCOPY (04/08/2013 10:14 AM EDT) Colonoscopy diverticulosis DR. Baldev [facility] 04/08/2013 10:1 4 AM EDT us Peyman De Paz HEALTH MAINTENANCE Final Result [facility] * Occult Blood, Fecal (FIT), Outside Lab (12/17/2008 12:00 AM EDT) Occult Blood, Stool #1 NEGATIVE [facility] 12/17/2008 us Historical Conversion Provider LAB BODY FLUIDS A ND STOOLS ORDERABLES Final Result [facility] from Last 3 Months or Most Recently Relevant to Health Maintenance [facility] Care Teams Superintendent Greens Relationship Specialty Start Date End Date Unknown, Doctor Unknown Unknown, STEVEN PCP - General 05/24/23
[2024-09-25 09:28] VITALS: BP 114/70; PULSE 86; RESP 18; TEMP 36.9; O2SAT 97; BMI 26.5
== END 2024-09-25 11:54 | disposition home or self-care (01) ==
PROVIDERS: PCP Internal Medicine; Visit Provider Internal Medicine
DX: Z00.00 Encounter for general adult medical examination without abnormal findings (principal); M25.511 Pain in right shoulder; F32.9 Major depressive disorder, single episode, unspecified; E78.5 Hyperlipidemia, unspecified

== ENCOUNTER → 2024-09-25 08:43 | Outpatient (BNVA) | payer MEDICARE, OTHER, SELFPAY | PROVIDERS: PCP Internal Medicine; Visit Provider Internal Medicine | DX: Z00.01 Encounter for general adult medical examination with abnormal findings (principal); E78.5 Hyperlipidemia, unspecified; M25.511 Pain in right shoulder; F32.9 Major depressive disorder, single episode, unspecified | CPT/HCPCS: 96127 ==

== ENCOUNTER 2024-11-27 08:00 | Outpatient (RCR) | payer MEDICARE, OTHER, SELFPAY ==
--- NOTE | 2024-10-09 08:48 | MHC.PT.EP ---
[facility] [place] Office [place] Office [place] Office [address] Kristopher Townsend [address] [phone] F: [phone] F: [phone] F: [phone] F: [phone] Physical Therapy Plan of Care Date of Evaluation: 10/09/24 Date of Surgery: n/a Diagnosis: R shoulder pain Assessment: Patient is a 74 year old male presenting to PT with complaints of pain in his R shoulder. Pt reports onset of pain began about 4 months ago due to insidious onset. He presents today with impairments in pain, shoulder ROM, posture, shoulder strength, increase tissue density. 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 Clinical presentation today is most consistent with signs and sx associated with R shoulder pain and pt will benefit from skilled PT 2 week x 4 weeks to address the following problems and impairments noted upon evaluation: pain, shoulder ROM, posture, shoulder strength, increase tissue density. These problems limit the patient with the following functional activities: sleeping on R, pushing, reaching. The prescribed treatment plan of care is medically necessary. Co-morbidities of depression were identified and taken into considerations of plan of care. Pt was educated on HEP, role of PT, prognosis, POC. Frequency and Duration: The patient will be seen 2 x week x 4 weeks Short Term Goals: Pt will demonstrate improved R shoulder ROM to equal B in 2 weeks. Pt will demonstrate improved R shoulder MMT strength to 5/5 in 2 weeks. [facility] Goals: Pt will demonstrate improved SPADI score by 9 points in 4 weeks for improved functional mobility. Pt will demonstrate ability to reach and push with his R arm with min to no pain in 4 weeks for return to PLOF. Pt will demonstrate ability to sleep on R with min to no pain in 4 weeks for return to PLOF. Treatment Plan: Modalities to reduce pain, spasms and effusion. Manual therapy to restore motion and function. Therapeutic exercise to improve strength and flexibility. Neuromuscular re-education for posture and balance. Therapeutic activities to return to functional activities of daily living. Electronically signed by: Hannah Muro, PT, DPT, ATC Please sign and return to therapist. Thank you for your referral.
--- NOTE | 2025-01-05 07:56 | MHC.PT.DC ---
[facility] [place] Office [place] Office [place] Office [address] Kristopher Townsend [address] [phone] F: [phone] F: [phone] F: [phone] F: [phone] Physical Therapy Discharge Report Diagnosis: R shoulder pain Date of Surgery: n/a Date of Evaluation: 10/09/24 Date of Discharge: 01/05/25 Treatments to Date: 6 Cancellations to Date: 0 No Shows to Date: 0 Discharge Status: Achieved Goals Improved Function Independent with HEP Discharge Summary: Pt had been placed on 30 day hold while he transitioned to HEP. At last visit he was feeling significantly better and plan was to d/c after he transitioned to HEP. Therefore we will do that. Electronically signed by: Hannah Muro, PT, DPT, ATC Please sign and return to therapist. Thank you for your referral.
== END 2025-01-05 07:56 | disposition home or self-care (01) ==
LOC: HO.PTCHIC 08:00
PROVIDERS: PCP Internal Medicine; Visit Provider Internal Medicine
DX: M25.511 Pain in right shoulder (principal)
CPT/HCPCS: 97110; 97140; 97161

== ENCOUNTER 2025-07-09 11:02 | Outpatient (AMB) | payer MEDICARE, OTHER, SELFPAY ==
--- NOTE | 2025-07-09 11:03 | A.OFFPC_ITS ---
Intake Visit Reasons: Telehealth Testosterone Allergies No Known Allergies Allergy (Verified 07/09/25 11:03) Tobacco use date assessed: 07/09/25 Fall risk assessment: No Falls in past year Last assessed Fall Risk: 07/09/25 Dental Screening Dental Screen Date: 07/09/25 Did you have a dental visit in the last 12 months?: Yes Did you have a dental problem in the last 6 months where you did not have access to dental care?: No Was dental information given to patient?: Patient has dentist HPI Telehealth Testosterone HPI Details This is a telehealth to discuss testosterone replacement therapy. Patient has been concern because every time he feels a prescription for testosterone gel the pharmacist warmth him about risk of heart attack and stroke. Patient has been on testosterone replacement for over 10 years. He has been tolerating therapy well [facility] Medical History GERD (gastroesophageal reflux disease) Depression BPH (benign prostatic hyperplasia) Hyperkalemia Annual physical exam Normal colonoscopy Hypogonadism Inguinal hernia, right Hiatal hernia Hyperlipidemia Actinic keratitis Surgical History H/O colonoscopy Family History Father No problems noted. Mother No problems noted. Social History Housing: House Patient Tobacco Use Status: Never used Tobacco e-Cigarette/Vaping Use: Never Used Current occupational status: retired Cognitive needs: No Hearing needs: No Vision needs: No Questionnaire Thrive Questionnaire Date Thrive assessed: 05/03/21 Review of Systems Const All systems reviewed & are unremarkable except as noted in HPI and below Eyes Reports no additional complaints ENT Reports no additional complaints Card Reports no additional complaints Resp Reports no additional complaints GI Reports no additional complaints Reports no additional complaints Physical exam (Primary Care) Tobacco/Smoking Status: Tobacco use Status Tobacco use date assessed 07/09/25 07/09/25 11:04 Patient Tobacco Use Status Never used Tobacco 07/09/25 11:04 e-Cigarette/Vaping Use Never Used 07/09/25 11:04 Thrive Assessment: Date of Thrive Assessment Date Thrive assessed 10/12/21 12/18/25 11:04 Telehealth Telehealth Telehealth Platform: Telephone Location of provider rendering services: practice address Location of patient: address on file Patient Identification confirmed using: Name, : Yes Telehealth method: voice only Patient verbally consented to treatment: Yes Patient verbally consented to billing insurance company: Yes Patient informed of any privacy concerns related to visit: Yes Minutes spent on Phone/Video with Pt.: 15 Coding Level of Care Code Est Pt Level 3 (26952) Diagnoses Hypogonadism Assessment & Plan Assessment & Plan (1) Hypogonadism: Comment: continue testosterone replacement Category: Medical Plan: Pros and cons of testosterone replacement therapy discussed with the patient. He was reassured that his testosterone level on testosterone gel replacement is low-normal range and does not increase his risk for heart attack or stroke.
--- OUTSIDE RECORDS SUMMARY | 2025-07-09 14:24 | XMS_ITS | Encounter Summary ---
Author Organization [facility] Address [address] [place] [address] Care Team Providers Care Healthcare Administrator Name Role Phone Renee Eller Primary Care Provider [phone] Encounter Details Date Type Department Care Team (Late st Contact Info) Description 07/07/2025 Orders Only [facility] [address] [place] [address] Justyna Cordova LPN Severe episode of recurrent major depressive disorder, without psychotic features Social History Tobacco Use Types Packs/Day Years Used Date Smoking Tobacco: Never Comments:: Sex and Gender Information Value Date Recorded Sex Assigned at Male 04/28/2025 10:26 AM EDT Legal Sex Male 12:01 AM EDT Gender Identity Male 04/25/2025 5:09 AM EDT Sexual Orientation Straight 04/25/2025 5: 09 AM EDT documented as of this encounter Plan of Treatment Not on file documented as of this encounter Procedures * Due to [facility] law, this organization might not be sharing negative HIV tests. Procedure Name Priority Date/Time Associated Diagnosis Comments TRANSCRANIAL MAGNETIC STIMULATION Routine 07/07/2025 12:29 PM EST Severe episode of recurrent major depressive disorder, without psychotic features documented in this encounter Results * Due to [place] [employer] law, this organization might not be sharing negative HIV tests. * Transcranial Magnetic Stimulation (07/07/2025 12:29 PM EST) us Abdelrahman Rob MD BEHAVIORAL HEALTH ORDERABL ES Final Result documented in this encounter Visit Diagnoses Diagnosis Severe episode of recurrent major depressive disorder, without psychotic features documented in this encounter Care Teams Healthcare Administrator Relationship Specialty Start Date End Date Renee Eller [address] [place] [address] PCP - General Internal Medicine 05/19/25 documented as of this encounter
--- OUTSIDE RECORDS SUMMARY | 2025-07-09 14:24 | XMS_ITS | Patient Health Record ---
Author Organization [facility] Address [address] [place] [address] Care Team Providers Care Export Traffic Department Manager Name Role Phone Renee Eller MD Primary Care Provider Peyman Renner Jr Unavailable Allergies No Known Allergies Reason For Referral No Information Medications Medication SIG (Take, Route, Frequency, Duration) Notes Start Date End Date Status Fortesta 10 MG/ACT (2%) Gel 1 pump to skin in the morning to the thighs Transdermal Once a day Active DULoxetine HCl 60 MG Capsule Delayed Release Particles 1 capsule Orally Once a day; Duration: 30 day(s) Active Simvastatin 20 MG Tablet 1 tablet in the evening Orally Once a day; Duration: 30 day(s) Active MiraLax (colon prep) 17 GM/SCOOP Powder mixed with Gatorade or Crystal Light Orally begin at 5:00 p.m. the day before the procedure; Duration: 1 day 01/15/2023 Active traZODone HCl 100 MG Tablet 1 tablet at bedtime Orally Once a day; Duration: 30 day(s) Active Fish Oil [place]-3 1000 MG Capsule 1 capsule Orally Once a day; Duration: 30 day(s) Active Centrum Adult - Liquid as directed Orally Active Vitamin D3 2400 UNIT/ML Liquid as directed Active Immunizations Vaccine Route Administration Date Status Comme nts Influenza Unknown 05/09/2022 Administered Social History Tobacco Use: Social History Observation Description Date Details (start date - stop date) Never Smoker NA - NA Social History Drugs/Alcohol: Social Info Question Answer Notes Alcohol Screen Did you have a drink containing alcohol in the past year? Yes How often did you have a drink containing alcohol in the past year? 2 to 4 times a month (2 points) How many drinks did you have on a typical day when you were drinking in the past year? 1 or 2 drinks (0 point) How often did you have 6 or more drinks on one occasion in the past year? Never (0 point) Points 2 Interpretation Negative Tobacco Use: Social Info Question Answer Notes Tobacco Use/Smoking Patient is a nonsmoker Additional Details Category Social Info Options Details Miscellaneous: Marital status: Occupation: retired Problems Problem Type SNOMED Code ICD Code Onset Dates Problem Status W/U Status Risk Notes Problem Colon cancer screening (491886690) Colon cancer screening (Z12.11) Active confirmed Problem Long-term current use of drug therapy (229002939) Long-term current use of high risk medication other than anticoagulant (Z79.899) Active confirmed Plan Of Treatment Future Test Test Name Order Date COLONOSCOPY 01/15/2023 Insurance Providers Payer Name Payer Address Payer Phone Subscriber Number Group Number Insured Name Patient Relationship to Insured Coverage Start Date Coverage End Date MEDICARE OF [place] [address] [place] [address] [id number] ZACK ROSEN Self - patient is the insured [facility] [address] [place] [address] [id number] ZACK ROSEN Self - patient is the insured Medical (General) History Medical History History ICD Code Hyperlipidemia Low testosterone Insomnia Anxiety BPH Surgical History Surgery Date(Month/Year)
--- OUTSIDE RECORDS SUMMARY | 2025-07-09 14:25 | XMS_ITS | Clinical Summary ---
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 omega 1-sri-xqu-fish oil (Fish OiL) 1,000 mg (120 mg-180 mg) capsule Take 1,000 mg by mouth once a day. Active multivitamin-m inerals-folic acid-Co Q10 (AquADEKs) 100-350-5 mcg-mcg-mg tablet,chewabl e Chew and swallow 1 tablet by mouth 2 times a day. Active Vitamin D3 25 mcg (1,000 unit) capsule Take 1 capsule by mouth once a day. Active simvastatin (ZOCOR) 20 mg tablet Take 1 tablet by mouth nightly. 12/18/19 13 Active testosterone 1.62 % (20.25 mg/1.25 gram) gel in packet 06/30/20 25 Active omeprazole (PriLOSEC) 20 mg capsule Take 20 mg by mouth once a day. 04/05/[address] (CYMBALTA) 20 mg capsule Take 1 capsule (20 mg total) by mouth in the morning. Take with a 60 mg capsule for 80 mg total. 30 capsule 1 07/02/[address] (CYMBALTA) 60 mg capsule Take 1 capsule (60 mg total) by mouth once a day. Take with a 20 mg capsule for 80 mg total. 30 capsule 1 07/02/20 25 Active traZODone (DESYREL) 150 mg tablet Take 1 tablet (150 mg total) by mouth nightly. 30 tablet 1 07/02/20 25 Active aspirin 81 mg EC tablet Take 81 mg by mouth daily. 08/27/19 15 025 Discontinued(Di scontinued by another clinician) simvastatin (ZOCOR) 5 mg tablet Take 5 mg by mouth nightly. 025 Discontinued(Di scontinued by another clinician) testosterone (Fortesta) 10 mg/0.5 gram /actuation gel in metered-dose pump Place on the skin. 025 Discontinued(Di scontinued by another clinician) fluticasone propionate (FLONASE) 50 mcg/actuation nasal sprayIndicatio ns:Post-nasal drainage,Hoars eness Administer 2 sprays into each nostril once a day. 16 g 11 05/24/20 23 025 Discontinued(Di scontinued by another clinician) traZODone (DESYREL) 100 mg tablet Take 100 mg by mouth nightly. 025 Discontinued traZODone (DESYREL) 100 mg tablet SIG: TAKE 1+1/2 at bedtime X 4 DAYS THEN D/C AND BEGIN 2QHS THEREAFTER [RECORDED - NOT SENT - SEE [facility] NOTE [id number]] 1 tablet 06/26/20 25 025 Discontinued Active Problems Problem Noted Date Diagnosed Date Actinic keratosis 07/02/2025 Anemia 07/02/2025 Insomnia 07/02/2025 Depression 07/02/2025 Never smoked tobacco 07/02/2025 Gastroesophageal reflux disease without esophagi tis 07/02/2025 Inguinal hernia, right 07/02/2025 Severe recurrent major depre ssion without psychotic features 05/07/2025 Hypogonadism male 02/25/2013 Anxiety disorder 02/25/2013 Hypercholesterolemia 02/25/2013 Resolved Problems Problem Noted Date Diagnosed Date Resolved Date Major depression, recurrent 10/07/2013 05/07/2025 Esophageal reflux 02/25/2013 07/02/2025 Encounters * This document contains information received from the source organization and may not represent a complete record from that organization. Date Type Department Care Team Description 07/07/2025 Orders Only [address] [address] Justyna Cordova LPN Severe episode of recurrent major depressive disorder, without psychotic features 06/26/2025 9:00 AM EST Telehealth [address] [address] Abdelrahman Rob MD Severe episode of recurrent major depressive disorder, without psychotic features (Primary Dx) 06/25/2025 7:00 AM EST Treatment [address] [address] Severe episode of recurrent major depressive disorder, without psychotic features (Primary Dx) 06/24/2025 7:00 AM EST Treatment [address] [address] Severe episode of recurrent major depressive disorder, without psychotic features (Primary Dx) 06/23/2025 7:00 AM EST Treatment [address] [address] Severe episode of recurrent major depressive disorder, without psychotic features (Primary Dx) 06/22/2025 7:00 AM EST Treatment [address] [address] Severe episode of recurrent major depressive disorder, without psychotic features (Primary Dx) 06/17/2025 7:00 AM EST Treatment [address] [address] Severe episode of recurrent major depressive disorder, without psychotic features (Primary Dx) 06/16/2025 7:00 AM EST Treatment [address] [address] Severe episode of recurrent major depressive disorder, without psychotic features (Primary Dx) 06/15/2025 7:00 AM EST Treatment [address] [address] Severe episode of recurrent major depressive disorder, without psychotic features (Primary Dx) 06/12/2025 7:00 AM EST Treatment [address] [address] Severe episode of recurrent major depressive disorder, without psychotic features (Primary Dx) 06/11/2025 7:00 AM EST Treatment [address] [address] Severe episode of recurrent major depressive disorder, without psychotic features (Primary Dx) 06/10/2025 7:00 AM EST Treatment [address] [place] [address] Severe episode of recurrent major depressive disorder, without psychotic features (Primary Dx) 06/09/2025 7:00 AM EST Treatment [address] [place] [address] Severe episode of recurrent major depressive disorder, without psychotic features (Primary Dx) 06/08/2025 7:00 AM EST Treatment [address] [place] [address] Severe episode of recurrent major depressive disorder, without psychotic features (Primary Dx) 06/05/2025 7:00 AM EST Treatment [address] [place] [address] Severe episode of recurrent major depressive disorder, without psychotic features (Primary Dx) 06/04/2025 7:00 AM EST Treatment [address] [place] [address] Severe episode of recurrent major depressive disorder, without psychotic features (Primary Dx) 06/03/2025 7:00 AM EST Treatment [address] [place] [address] Severe episode of recurrent major depressive disorder, without psychotic features (Primary Dx) 06/01/2025 7:00 AM EST Treatment [address] [place] [address] Severe episode of recurrent major depressive disorder, without psychotic features (Primary Dx) 05/29/2025 7:00 AM EST Treatment [address] [place] [address] Severe episode of recurrent major depressive disorder, without psychotic features (Primary Dx) 05/28/2025 7:00 AM EST Treatment [address] [place] [address] Severe episode of recurrent major depressive disorder, without psychotic features (Primary Dx) 05/27/2025 7:00 AM EST Treatment [address] [place] [address] Severe episode of recurrent major depressive disorder, without psychotic features (Primary Dx) 05/26/2025 7:00 AM EST Treatment [address] [place] [address] Severe episode of recurrent major depressive disorder, without psychotic features (Primary Dx) 05/25/2025 7:00 AM EST Treatment [address] [address] Severe episode of recurrent major depressive disorder, without psychotic features (Primary Dx) 05/22/2025 7:30 AM EDT Office Visit [address] [address] Abdelrahman oRb MD Severe episode of recurrent major depressive disorder, without psychotic features (Primary Dx) 05/22/2025 7:00 AM EDT Treatment [address] [address] Severe episode of recurrent major depressive disorder, without psychotic features (Primary Dx) 05/21/2025 7:00 AM EDT Treatment [address] [address] Severe episode of recurrent major depressive disorder, without psychotic features (Primary Dx) 05/20/2025 7:00 AM EDT Treatment [address] [address] Severe episode of recurrent major depressive disorder, without psychotic features (Primary Dx) 05/20/2025 Orders Only [address] [address] Antonio Garza, DEV Severe episode of recurrent major depressive disorder, without psychotic features (Primary Dx) 05/19/2025 7:00 AM EDT Treatment [address] [address] Severe episode of recurrent major depressive disorder, without psychotic features (Primary Dx) 05/18/2025 7:00 AM EDT Treatment [address] [address] Severe episode of recurrent major depressive disorder, without psychotic features (Primary Dx) 05/15/2025 7:00 AM EDT Treatment [address] [address] Severe episode of recurrent major depressive disorder, without psychotic features (Primary Dx) 05/14/2025 7:00 AM EDT Treatment [address] [address] Severe episode of recurrent major depressive disorder, without psychotic features (Primary Dx) 05/13/2025 7:00 AM EDT Treatment [address] [address] Severe episode of recurrent major depressive disorder, without psychotic features (Primary Dx) 05/12/2025 7:00 AM EDT Treatment [address] [address] Severe episode of recurrent major depressive disorder, without psychotic features (Primary Dx) 05/11/2025 7:00 AM EDT Treatment [address] [address] Severe episode of recurrent major depressive disorder, without psychotic features (Primary Dx) 05/08/2025 7:00 AM EDT Treatment [address] [address] Severe episode of recurrent major depressive disorder, without psychotic features (Primary Dx) 05/07/2025 7:00 AM EDT Treatment [address] [address] Severe episode of recurrent major depressive disorder, without psychotic features (Primary Dx) 05/07/[address] [address] Justyna Cordova LPN 05/06/2025 7:00 AM EDT Treatment [address] [address] Severe episode of recurrent major depressive disorder, without psychotic features (Primary Dx) 05/05/2025 7:00 AM EDT Treatment [address] [address] Severe episode of recurrent major depressive disorder, without psychotic features (Primary Dx) 05/01/2025 8:00 AM EDT Treatment [address] [address] Omar Griffith MD Listerud, Richard G, MD Severe episode of recurrent major depressive disorder, without psychotic features (Primary Dx); Moderate episode of recurrent major depressive disorder (HCC) 04/28/2025 11:00 AM EDT Office Visit [address] [address] Mono Pringle MD Moderate episode of recurrent major depressive disorder (HCC) (Primary Dx) 04/24/[address] [address] Janice Barnard LPN from Last 3 Months Immunizations Immunization Administration Dates Next Due INFLUENZA, SPLIT VIRUS, TRIVALENT, PF 05/13/2014 Influenza, High Dose Seasona l, Preservative Free (FLUZONE HIGH-DOSE) 04/12/2019,04/24/2018,05/18/2017,04/22 Influenza, Injectable, Quadr ivalent Preservative Free 05/09/2023,04/17/2022,04/20/2021 Influenza, Injectable, Quadr ivalent, Preservative Free 06/26/2016 Influenza, Quadrivalent, Rec ombinant, Injectable, PF 04/27/2020 Influenza, Trivalent, MDV, Injectable 05/09/2022 ,05/13/2014,05/20/2013 Influenza, Unspecified 05/13/2014 Pneumococcal Conjugate Vacci ne, 13 Valent 01/17/2017,08/24/2014 Pneumococcal Polysaccharide Vaccine, 23 Valent 01/17/2017,08/27/2014 Tetanus Toxoid, Reduced Diph theria Toxoid, and Acellular Pertussis Vaccine, Adsorbed 10/07/2022,12/01/2008 Zoster Vaccine Recombinant 10/07/2022,06/17/2022 Zoster Vaccine, Live 08/02/2016 Family History Medical History Relation Name Comments Diabetes type II Father Paternal hi story of Diabetes Mellitus Other Other Family history [...] Orientation Straight 04/25/2025 5: 09 AM EDT Last Filed Vital Signs Vital Sign Reading Time Taken Comments Blood Pressure 129/88 07/02/2025 11:04 AM EST Pulse 72 07/02/2025 11:04 AM EST Temperature 36.4 C (97.6 F) 08/27/2014 1:43 PM EST Respiratory Rate - - Oxygen Saturation 98% 05/24/2023 10:05 AM EDT Inhaled Oxygen Concentration - - Weight 94.8 kg (209 lb) 07/02/2025 11:03 AM EST reported Height 189 cm (6' 2.41 ) 05/24/2023 10:05 AM EDT Body Mass Index 26.54 05/24/2023 10:05 AM EDT Plan of Treatment Health Maintenance Due Date Last Done Comments Cologuard 1950 Hepatitis C Screening 1950 Sigmoidoscopy 1950 Medicare AWV 1951 FOBT / Fit Test 12/17/2009 12/17/2008 Colon Cancer Screening 04/08/2023 Colonoscopy 04/08/2023 04/08/2013 Alcohol/Substance Use Screening 07/23/2024 Fall Risk Screening 07/23/2024 Health Care Proxy Review 07/23/2024 Social Drivers of Health Annual Screening 07/23/2024 Influenza Vaccine (#1) 2025 , 05/09/2022, 04/17/2022, Additional history exists COVID-19 Vaccine ( season) 2025 05/09/2023, 05/22/2022, 11/18/2021, Additional history exists Depression Screening and Follow-Up 06/24/2026 06/24/2025 RSV Vaccine (60+ years old and patients) (1 - 1-dose 75+ series) 2026 DTaP,Tdap,and Td Vaccines (3 - Td or Tdap) 10/07/2032 10/07/2022, 12/01/2008 Pneumococcal Vaccine: 50+ Years Completed 01/17/2017, 01/17/2017, 08/27/2014, Additional history exists Zoster Vaccines Completed 10/07/2022, 05/24, 08/02/2016 Hepatitis B Vaccines Aged Out No long er eligible based on patient's age to complete this topic Procedures * Due to [place] state law, this organization might not be sharing negative HIV tests. Procedure Name Priority Date/Time Associated Diagnosis Comments TRANSCRANIAL MAGNETIC STIMULATION Routine 07/07/2025 12:29 PM EST Severe episode of recurrent major depressive disorder, without psychotic features HM COLONOSCOPY Routine 04/08/2013 10:14 AM EDT OCCULT BLOOD, FECAL (FIT), OUTSIDE LAB Routine 12/17/2008 12:00 AM EDT from Last 3 Months or Most Recently Relevant to Health Maintenance Results * Due to [place] state law, this organization might not be sharing negative HIV tests. * Transcranial Magnetic Stimulation (07/07/2025 12:29 PM EST) Abdelrahman Rob MD BEHAVIORAL HEALTH ORDERABL ES Final Result * COLONOSCOPY (04/08/2013 10:14 AM EDT) Colonoscopy diverticulosis DR. De Paz [facility] 04/08/2013 10:1 4 AM EDT Peyman De Paz HEALTH MAINTENANCE Final Result Performing Organization Address City/[facility]/ZIP Co de Phone Number [facility] * Occult Blood, Fecal (FIT), Outside Lab (12/17/2008 12:00 AM EDT) Occult Blood, Stool #1 NEGATIVE [facility] 12/17/2008 us Historical Conversion Provider LAB BODY FLUIDS A ND STOOLS ORDERABLES Final Result [facility] from Last 3 Months or Most Recently Relevant to Health Maintenance Insurance [facility] MEDICARE Care Teams Bass Viol Repairer Relationship Specialty Start Date End Date Renee Eller [facility] [place] [address] PCP - General Internal Medicine 05/19/25
== END 2025-07-09 12:25 | disposition home or self-care (01) ==
PROVIDERS: PCP Internal Medicine; Visit Provider Internal Medicine
DX: Z79.890 Hormone replacement therapy (principal)

== ENCOUNTER → 2025-07-09 11:02 | Outpatient (BNVA) | payer MEDICARE, OTHER, SELFPAY | PROVIDERS: PCP Internal Medicine; Visit Provider Internal Medicine | DX: E29.1 Testicular hypofunction (principal) | CPT/HCPCS: 99212 ==